=== PATIENT | male | born 1940 | race Caucasian/White ===

== ENCOUNTER 2017-10-23 23:55 | Emergency (ER) | payer MEDICARE ==
[~2017-10-23] VITALS: Ht 172.7 cm; Wt 80.0 kg
[2017-10-23 23:59] VITALS: BP 125/65; PULSE 82; RESP 16; TEMP 98.7; O2SAT 94
[2017-10-24] MEDS ORDERED: CEROTAB PO (00:20)
[2017-10-24] MEDS ORDERED: TAMS5CAP PO (00:20)
[2017-10-24] MEDS ORDERED: D-20TAB3 PO (00:20)
[2017-10-24] MEDS ORDERED: AMIO200T PO (00:20)
[2017-10-24] MEDS ORDERED: ASPI-516 CHEW (00:20)
[2017-10-24] MEDS ORDERED: ZINC220T PO (00:20)
[2017-10-24] MEDS ORDERED: METO25TA3 PO (00:20)
[2017-10-24] MEDS ORDERED: FURO1TAB62 PO (00:20)
[2017-10-24] MEDS ORDERED: ATOR40TA16 PO (00:20)
[2017-10-24] MEDS ORDERED: ZANT150T2 PO (00:20)
[2017-10-24] MEDS ORDERED: LANTINJ SQ (00:20)
[2017-10-24] MEDS ORDERED: KEPP750T PO (00:20)
[2017-10-24] MEDS ORDERED: NORT25CA PO (00:20)
[2017-10-24] MEDS ORDERED: PAME50CA PO (00:20)
[2017-10-24] MEDS ORDERED: LAMO100 PO (00:20)
[2017-10-24] MEDS ORDERED: EMPA1TAB3 PO (00:20)
[2017-10-24] MEDS ORDERED: APIX5TAB PO (00:20)
[2017-10-24 00:22] VITALS: O2SAT 94
[2017-10-24 00:35] LABS: AUTOMATED NEUTROPHIL # 4.2 TH/MM3 (1.8-7.7); BASOPHIL % 0.4 % (0.0-2.0); EOSINOPHIL % 0.2 % (0.0-4.0); HEMATOCRIT 34.5 % (39.0-51.0); HEMOGLOBIN 11.9 GM/DL (13.0-17.0); LYMPH % 13.1 % (9.0-44.0); LYMPHOCYTE # 0.7 TH/MM3 (1.0-4.8); MEAN CELL VOLUME 92.1 FL (80.0-100.0); MEAN CORPUSCULAR HEMOGLOBIN 31.7 PG (27.0-34.0); MEAN CORPUSCULAR HGB CONC 34.5 % (32.0-36.0); MEAN PLATELET VOLUME 7.3 FL (7.0-11.0); MONO % 7.9 % (0.0-8.0); MONOCYTE # 0.4 TH/MM3 (0-0.9); NEUT % 78.4 % (16.0-70.0); PLATELET COUNT 187 TH/MM3 (150-450); RED BLOOD COUNT 3.75 MIL/MM3 (4.50-5.90); RED CELL DISTRIBUTION WIDTH 17.6 % (11.6-17.2); WHITE BLOOD COUNT 5.4 TH/MM3 (4.0-11.0)
[2017-10-24 00:50] LABS: INTERNATIONAL NORMALIZED RATIO 1.1 RATIO; PROTHROMBIN TIME - PATIENT 11.4 SEC (9.8-11.6)
[2017-10-24 00:54] LABS: ALBUMIN 3.1 GM/DL (3.4-5.0); AST (GOT) 45 U/L (15-37); BICARBONATE 26.9 MEQ/L (21.0-32.0); BLOOD UREA NITROGEN 17 MG/DL (7-18); CALCIUM 8.5 MG/DL (8.5-10.1); CHLORIDE 103 MEQ/L (98-107); CREATININE 1.06 MG/DL (0.60-1.30); GLOMERULAR FILTRATION RATE 68 ML/MIN (>89); GLUCOSE,RANDOM 112 MG/DL (74-106); MAGNESIUM 2.2 MG/DL (1.5-2.5); SODIUM (NA) 140 MEQ/L (136-145)
--- NOTE | 2017-10-24 00:59 | PD ---
HPI Chief Complaint: Medical Clearance Time Seen by Provider: 00:08 Travel History International Travel<30 days: No Contact w/Intl Traveler<30days: No Traveled to known affect area: No History of Present Illness HPI The patient is a 75 year old male who presents to the [facility] emergency department with a history of being sent by his residential related to increasing agitation and confusion noted sometime earlier today. The patient on arrival is reporting that he was sent here against his will. He arrives alert and oriented 4 with a GCS of 15. According to the residential record the patient was seen at [facility] earlier today with a reported medication reaction to nortriptyline. The patient refuses to answer any questions about this reaction. The patient reports that he does have bilateral foot pain. He reports that this is related to his diabetic neuropathy. He is noted to have edema to his legs, however he reports that this is chronic and no worse than usual. His edema waxes and wanes in severity. The patient denies having any chest pain, chest pressure, or shortness of breath. He denies having any abdominal pain. He reports that he has been eating and drinking well. On review of systems otherwise, he denies having any known recent fevers , cough or congestion, neck pain, vomiting, diarrhea, urinary symptoms, one- sided weakness, slurred speech, facial droop, difficulty with word finding ability, or numbness or tingling to his extremities. [facility] Past Medical History Narrative Medical The patient's past medical history is obtained from reviewing the patient's residential record an electronic medical record. The patient's history consists of coronary artery disease, atrial fibrillation, dementia, congestive heart failure, prior history of cerebrovascular accident, depression. Atrial Fibrillation: Yes Depression: Yes Congestive Heart Failure: Yes Cerebrovascular Accident: Yes Coronary Artery Disease: Yes Dementia: Yes Diminished Hearing: No Past Surgical History Narrative Surgical The patient's past surgical history is unable to be obtained. Social History Alcohol Use: No Tobacco Use: No Substance Use: No Allergies-Medications (Allergen,Severity, Reaction): Coded Allergies: No Known Allergies (Unverified , 10/24/17) Reported Meds & Prescriptions Reported Meds & Active Scripts Active Reported Amiodarone (Amiodarone HCl) 200 Mg Tab 200 Mg PO TID Metoprolol Tartrate 25 Mg Tab 25 Mg PO BID Lasix (Furosemide) 20 Mg Tab 20 Mg PO BID Lamictal (Lamotrigine) 100 Mg Tab 100 Mg PO BID Keppra (Levetiracetam) 750 Mg Tab 1,500 Mg PO BID Eliquis (Apixaban) 5 Mg Tab 5 Mg PO BID Zinc Sulfate 220 Mg Tab 220 Mg PO DAILY Zantac (Ranitidine HCl) 150 Mg Tab 150 Mg PO DAILY Pamelor (Nortriptyline HCl) 50 Mg Cap 50 Mg PO HS Nortriptyline (Nortriptyline HCl) 25 Mg Cap 25 Mg PO HS Lantus Solostar Pen Inj (Insulin Glargine) 300 Unit/3 Ml Pen 45 Units SQ Jardiance (Empagliflozin) 25 Mg Tab 25 Mg PO DAILY Flomax (Tamsulosin HCl) 0.4 Mg Cap 0.4 Mg PO HS D-2000 Maximum Strength (Cholecalciferol) 2,000 Unit Tab 2,000 Units PO DAILY Cerovite Advanced Formula (Multiple Vitamins W/ Minerals) 18 Mg Iron-400 Mcg Tab PO DAILY Atorvastatin (Atorvastatin Calcium) 40 Mg Tab 40 Mg PO HS Aspirin 81 Mg Chew 81 Mg CHEW DAILY Review of Systems Except as stated in HPI: all other systems reviewed are Neg General / Constitutional: No: Fever Eyes: No: Visual changes HENT: No: Headaches Cardiovascular: No: Chest Pain or Discomfort Respiratory: No: Shortness of Breath Gastrointestinal: No: Abdominal Pain Genitourinary: No: Dysuria Musculoskeletal: No: Pain Skin: No Rash Neurologic: Positive: Change in Mentation, No: Weakness, Focal Abnormalities, Slurred Speech, Sensory Disturbance Psychiatric: No: Depression, Suicidal Ideations, Homicidal Ideation Endocrine: No: Polydipsia Hematologic/Lymphatic: No: Easy Bruising Physical Exam Narrative General: The patient is a well-developed well-nourished male in no acute distress. Head and Neck exam: Head is normocephalic atraumatic. Eyes: EOMI, pupils are equal round and reactive to light. Nose: Midline septum with pink mucous membranes Mouth: Dentition unremarkable. Moist mucus membranes. Posterior oropharynx is not erythematous. No tonsillar hypertrophy. Uvula midline. Airway patent. Neck: No palpable lymphadenopathy. No nuchal rigidity. No thyromegaly. Cardiovascular: Irregularly irregular with a rate in the 90 without murmurs, gallops, or rubs. No pulse deficit to the extremities on simultaneous auscultation and palpation of his radial artery. Lungs: Clear to auscultation bilaterally. No wheezes, rhonchi, or rales. Abdomen: Soft, without tenderness to palpation in all 4 quadrants of the abdomen. No guarding, rebound, or rigidity. Normal bowel sounds are audible. No tenderness on palpation of McBurney's point. Extremities: No clubbing or cyanosis. The patient has 1+ pitting edema bilateral lower extremities. 2+ pulses in all 4 extremities. No calf tenderness on palpation. Back: No costovertebral angle tenderness to palpation. Neurologic Exam: Grossly nonfocal. Skin Exam: No rash noted. Intact skin that is warm and dry. Data Data Last Documented VS Vital Signs Date Time Temp Pulse Resp B/P (MAP) Pulse Ox O2 Delivery O2 Flow Rate FiO2 10/24/17 00:22 94 Room Air 10/24/17 00:04 82 16 10/23/17 23:59 98.7 125/65 (85) Orders Orders Electrocardiogram (10/24/17:) Complete Blood Count With Diff (10/24/17:17) Comprehensive Metabolic Panel (10/24/17:) Creatine Kinase (Cpk) (10/24/17:) Ckmb (Isoenzyme) Profile (10/24/17:) Troponin I (10/24/17:) B-Type Natriuretic Peptide (10/24/17:) Prothrombin Time / Inr (Pt) (10/24/17:) Act Partial Throm Time (Ptt) (10/24/17:) Lipase (10/24/17:) Urinalysis - C+S If Indicated (10/24/17:17) Magnesium (Mg) (10/24/17:17) Thyroid Stimulating Hormone (10/24/17:17) Chest, Single Ap (10/24/17:) Ct Brain W/O Iv Contrast(Rout) (10/24/17:17) Iv Access Insert/Monitor (10/24/17:17) Ecg Monitoring (10/24/17:17) Oximetry (10/24/17:17) Drug Screen, Random Urine (10/24/17:17) Alcohol (Ethanol) (10/24/17 00:17) Salicylates (Aspirin) (10/24/17 00:17) Tylenol (Acetaminophen) (10/24/17 00:17) Psych Screen (10/24/17 01:24) Labs Laboratory Tests Test 10/24/17 00:20 White Blood Count 5.4 TH/MM3 Red Blood Count 3.75 MIL/MM3 Hemoglobin 11.9 GM/DL Hematocrit 34.5 % Mean Corpuscular Volume 92.1 FL Mean Corpuscular Hemoglobin 31.7 PG Mean Corpuscular Hemoglobin Concent 34.5 % Red Cell Distribution Width 17.6 % Platelet Count 187 TH/MM3 Mean Platelet Volume 7.3 FL Neutrophils (%) (Auto) 78.4 % Lymphocytes (%) (Auto) 13.1 % Monocytes (%) (Auto) 7.9 % Eosinophils (%) (Auto) 0.2 % Basophils (%) (Auto) 0.4 % Neutrophils # (Auto) 4.2 TH/MM3 Lymphocytes # (Auto) 0.7 TH/MM3 Monocytes # (Auto) 0.4 TH/MM3 Eosinophils # (Auto) 0.0 TH/MM3 Basophils # (Auto) 0.0 TH/MM3 CBC Comment DIFF FINAL Differential Comment Prothrombin Time 11.4 SEC Prothromb Time International Ratio 1.1 RATIO Activated Partial Thromboplast Time 28.8 SEC Blood Urea Nitrogen 17 MG/DL Creatinine 1.06 MG/DL Random Glucose 112 MG/DL Total Protein 6.4 GM/DL Albumin 3.1 GM/DL Calcium Level 8.5 MG/DL Magnesium Level 2.2 MG/DL Alkaline Phosphatase 96 U/L Aspartate Amino Transf (AST/SGOT) 45 U/L Alanine Aminotransferase (ALT/SGPT) 43 U/L Total Bilirubin 1.0 MG/DL Sodium Level 140 MEQ/L Potassium Level 4.2 MEQ/L Chloride Level 103 MEQ/L Carbon Dioxide Level 26.9 MEQ/L Anion Gap 10 MEQ/L Estimat Glomerular Filtration Rate 68 ML/MIN Total Creatine Kinase 64 U/L Troponin I LESS THAN 0.02 NG/ML B-Type Natriuretic Peptide 204 PG/ML Lipase 31 U/L Thyroid Stimulating Hormone 3rd Gen 2.190 uIU/ML Salicylates Level LESS THAN 1.7 MG/DL Acetaminophen Level LESS THAN 2.0 MCG/ML Ethyl Alcohol Level LESS THAN 3 MG/DL MDM Medical Decision Making Medical Screen Exam Complete: Yes Emergency Medical Condition: Yes Medical Record Reviewed: Yes Differential Diagnosis Medication side effect, versus dementia with behavioral disturbances, versus urinary tract infection, versus electrolyte derangements, versus dehydration Narrative Course During the course of the patient's emergency department visit, the patient's history, examination, and differential diagnosis were reviewed with the patient. The patient was placed on a continuous improvement facilitator with oximetry and frequent blood pressure monitoring. The patient had IV access obtained and blood work sent for analysis. The patient had an EKG done on arrival. The patient's EKG shows atrial fibrillation with a heart rate of 98, QRS duration is 176 ms with an intraventricular conduction delay, QTC [address] segment elevation is noted. The patient's laboratory studies were reviewed and remarkable for a white count of 5.4, hemoglobin 11.9, platelets 187 with 78.4 neutrophils, CMP is remarkable for glucose of 112, AST 45, cardiac enzymes within normal limits, lipase 31, TSH 2.19, BNP 204, PT 11.4, PTT 28.8, acetaminophen less than 2, salicylate less than 1.7, alcohol level less than 3. Chest x-ray, CT scan of the brain was ordered, however the patient refused any imaging. The patient has been medically cleared for evaluation by the psychiatric screener. The patient had a psychiatric screen done by [facility]. The patient does not meet criteria for mandatory inpatient admission or being [facility] acted at this time. Case management is working on transporting the patient back the patient has been calm and cooperative during his evaluation. The patient will be discharged back to his residential to his residential. The patient is resting comfortably and feels better, is alert and in no distress. The patient's results and examination findings were discussed with the patient. The repeat examination is unremarkable and benign. The history, exam, diagnostic testing, and current condition do not suggest any significant pathology to warrant further testing, continued ED treatment, admission, or surgical evaluation at this point. The vital signs have been stable. The patient does not have uncontrollable pain, intractable vomiting, or other significant symptoms. The patient's condition is stable and appropriate for discharge. The patient will pursue further outpatient evaluation with a primary care physician or other designated or consulting physician as indicated in the discharge instructions. The patient is instructed to report back to the emergency department immediately for reexamination in the mean time if he develops any new or worsening signs or symptoms. The patient expressed understanding and was agreeable with this plan. Diagnosis Primary Impression: Dementia with behavioral problem Qualified Codes: F03.91 - Unspecified dementia with behavioral disturbance Referrals: Primary Care Physician 1 day Patient Instructions: Dementia (ED), General Instructions Med/Other Pt SpecificInfo: No Change to Meds Disposition: 03 DISCHARGE TO SNF Condition: Stable Marilu Armenta MD Oct 24, 2017 00:59
[2017-10-24 01:07] LABS: ALKALINE PHOSPHATASE 96 U/L (45-117); ALT (GPT) 43 U/L (12-78); TOTAL PROTEIN 6.4 GM/DL (6.4-8.2); TROPONIN I LESS THAN 0.02 NG/ML (0.02-0.05)
[2017-10-24 01:08] LABS: ACETAMINOPHEN LESS THAN 2.0 MCG/ML (10.0-30.0)
[2017-10-24 11:07] VITALS: BP 134/76
--- NOTE | 2017-10-24 14:23 | EKG ---
Date Performed: 10/23/2017 Time Performed: 23:07:09 PTAGE: 77 years EKG: Marked baseline artifact PROBABLE ATRIAL FIBRILLATION INTRAVENTRICULAR CONDUCTION DELAY LAT ERAL MYOCARDIAL INFARCTION INFERIOR MYOCARDIAL INFARCTION ABNORMAL ECG NO PREVIOUS TRACING DOCTOR: Robert Redd Interpretating Date/Time 10/24/2017 14:22:21
== END 2017-10-24 11:06 ==
LOC: NEPE 23:55
DX: F03.91 Unspecified dementia, unspecified severity, with behavioral disturbance (principal); E11.40 Type 2 diabetes mellitus with diabetic neuropathy, unspecified; I48.91 Unspecified atrial fibrillation; I50.9 Heart failure, unspecified; I25.10 Atherosclerotic heart disease of native coronary artery without angina pectoris; Z79.01 Long term (current) use of anticoagulants; Z79.4 Long term (current) use of insulin; Z79.899 Other long term (current) drug therapy
CPT/HCPCS: 80053; 80307; 82550; 83690; 83735; 83880; 84443; 84484; 85025; 85610; 85730; 93005